=== PATIENT | female | born 1965 | race Caucasian/White ===

== ENCOUNTER 2016-10-19 11:22 | Day surgery (SDC) | payer OTHER ==
[~2016-10-19] VITALS: Ht 152.4 cm; Wt 84.8 kg
[2016-10-19] VITALS (10 sets, daily range): BP systolic 125–147; BP diastolic 72–95
[2016-10-19] MEDS ORDERED: LIDOCAINE 1% INJ 20 ML (XYLOCAINE) VIAL ONE (11:37)
[2016-10-19] MEDS ORDERED: HEParin (CATH LAB) 2,000 ML IV ONE (11:37)
[2016-10-19] MEDS ORDERED: NS IV 1000 ML 1,000 ML ONE (11:37)
[2016-10-19] MEDS ORDERED: NS IV 1000 ML 1,000 ML IV SCH ×2 (12:00→13:12)
[2016-10-19 12:02] LABS: MEAN PLATELET VOLUME 10.5 FL (7.4-10.4); RED BLOOD COUNT 5.11 10^6/uL (4.35-5.85); RED CELL DISTRIBUTION WIDTH 13.2 % (10.0-14.5); WHITE BLOOD COUNT 8.9 10^3/uL (4.3-11.0)
[2016-10-19 12:13] LABS: INR 0.9 (0.8-1.4); PROTHROMBIN TIME PATIENT 12.1 SEC (12.2-14.7)
[2016-10-19] MEDS ORDERED: SUMA50TA2 PO (12:16)
[2016-10-19] MEDS ORDERED: ASPI-999 PO (12:16)
[2016-10-19] MEDS ORDERED: THYR65TA5 PO (12:16)
[2016-10-19] MEDS ORDERED: CETI10TA17 PO (12:16)
[2016-10-19] MEDS ORDERED: VERA40TA2 PO (12:16)
[2016-10-19] MEDS ORDERED: OMEP-254 PO (12:16)
[2016-10-19] MEDS ORDERED: fentaNYL INJECTION 100 MCG/2 ML AMP ONE (12:19)
[2016-10-19] MEDS ORDERED: MIDAZOLAM 5 MG/5 ML (VERSED) VIAL ONE (12:19)
[2016-10-19] MEDS ORDERED: diphenhydrAMINE 50 MG/ML INJ (BENADRYL) ONE (12:19)
[2016-10-19 12:24] LABS: ALANINE AMINOTRANSFERASE 25 U/L (0-55); ALBUMIN 4.2 G/DL (3.2-4.5); ANION GAP 12 MMOL/L (5-14); ASPARTATE AMINO TRANSFERASE 22 U/L (5-34); BILIRUBIN,TOTAL 0.5 MG/DL (0.1-1.0); BLOOD UREA NITROGEN 19 MG/DL (7-18); BUN/CREATININE RATIO 24; CALCIUM 9.8 MG/DL (8.5-10.1); CARBON DIOXIDE 25 MMOL/L (21-32); CHLORIDE 103 MMOL/L (98-107); CHOLESTEROL 203 MG/DL (< 200); CREATININE SERUM 0.78 MG/DL (0.60-1.30); DIRECT LDL 107 MG/DL (1-129); GFR ESTIMATED > 60; GLUCOSE 93 MG/DL (70-105); SODIUM 140 MMOL/L (135-145); TOTAL PROTEIN 7.8 G/DL (6.4-8.2); TRIGLYCERIDES 79 MG/DL (<150); VLDL CHOLESTEROL 16 MG/DL (5-40)
--- NOTE | 2016-10-19 12:40 | Cardiac Procedure Note-CS/ASA ---
Pre-Procedure Note Pre-Op Procedure Note H&P Reviewed The H&P was reviewed, patient examined and no changes noted. Date H&P Reviewed: Oct 19, 2016 Time H&P Reviewed: 12:40 Conscious Sedation Pre-Proced Time Reviewed: 12:40 ASA Class: 2 Airway Mallampati Classification: ([place] mountain appropriate class) I. II. III, IV Lungs Heart ASA score ASA 1: a normal healthy patient ASA 2: a patient with a mild systemic disease (mid diabetes, controlled hypertension, obesity ASA 3: a patient with a severe systemic disease that limits activity (angina , COPD, prior Myocardial infarction) ASA 4: a patient with an incapacitating disease that is a constant threat to life (CHF, renal failure) ASA 5: a moribund patient not expected to survive 24 hrs. (ruptured aneurysm) ASA 6: a declared brain patient whose organs are being harvested. For emergent operations, add the letter E after the classification Grade 2 Sedation Plan: Analgesia, Amnesia, Plan communicated to team members, Discussed options with patient/fam, Discussed risks with patient/fam Note The patient is an appropriate candidate to undergo the planned procedure, sedation, and anesthesia. The patient immediately re-assessed prior to indication. MARY ANN DUMONT MD FACP FACC CCDS Oct 19, 2016 12:40
[2016-10-19] MEDS ORDERED: FLU TRIvalent (5 YOA+) 2016-17 (AFLURIA) 0.5 ML IM ONE (13:00)
[2016-10-19] MEDS ORDERED: METO-351 PO (13:15)
[2016-10-19] MEDS ORDERED: PATIENT MAY USE OWN MEDS, ALL PO SCH (13:15)
[2016-10-19] MEDS ORDERED: PRAV20TA3 PO (13:15)
--- NOTE | 2016-10-19 13:16 | Discharge Inst-Cardiology ---
Discharge Inst-Cardiac Discharge Medications New Medications: Metoprolol Succinate (Toprol Xl) 25 Mg Tab.er.24h 25 MG PO DAILY #30 Ref 5 TAB Pravastatin Sodium (Pravastatin Sodium) 20 Mg Tablet 20 MG PO HS #30 Ref 5 TAB Continued Medications: Aspirin (Aspirin) 81 Mg Tab.chew 81 MG PO DAILY TAB Cetirizine HCl (Cetirizine HCl) 10 Mg Tablet 10 MG PO DAILY TAB Omeprazole Magnesium (Omeprazole Magnesium) 20 Mg Capsule.dr 20 MG PO DAILY CAP Sumatriptan Succinate (Sumatriptan Succinate) 50 Mg Tablet 50 MG PO UD TAKE 1 TAB AT ONSET OF HEADACHE; MAY REPEAT 1 TAB IN 2 HOURS IF NEEDED. TAB Thyroid,Pork (Nature-Throid) 65 Mg Tablet 195 MG PO DAILY TAKES 3 (65 MG) TABLETS / LAST FILLED 09/10/16 #90 TAB Discontinued Medications: Verapamil HCl (Verapamil HCl) 40 Mg Tablet 40 MG PO DAILY TAB MARY ANN DUMONT MD FACP FAC CCDS Oct 19, 2016 13:16
--- NOTE | 2016-10-19 13:16 | Discharge Inst-Post CATH ---
Discharge Inst-CATH Post Cardiac Cath D/C Inst Follow Up/Plan F/u with Dr Brady in 2 weeks CARDIAC CATH DISCHARGE INSTRUCTIONS *Hold Metformin for 48 hours post heart cath. ACTIVITY * Go Home directly and rest. * Limit activity of the leg (or wrist if it was used) for 7 days including aerobics, swimming, jogging, bicycling, etc. * Restrict stair-climbing for 7 days if possible, if not, climb up with your non -cath leg, then bring together on the same step. * Avoid lifting, pushing, pulling or excessive movement of the affected extremity for 7 days. * Customary sexual activity may be resumed after 2 days-use caution not to use a position that strains or causes pain to the affected extremity. * No driving for 24 hours. * NO SMOKING. * Avoid straining for bowel movements for 7 days. * Gentle walking on level ground is allowed. * Returning to work will depend on the type of procedure and the results. Your doctor will discuss this with you. CALL YOUR DOCTOR FOR ANY OF THE FOLLOWING: *If bleeding from the puncture site occurs- Apply gentle pressure to site with clean cloth and call your doctor or EMS. * If a knot or lump forms under the skin, increases in size, or causes pain. * If bruising appears to be worsening or moving further down your leg instead of disappearing. * Temperature above 101 F. CARE OF YOUR GROIN INCISION; * Bruising or purple discoloration of the skin near the puncture site is common. * You may shower only, no bathtub bathing for 5 days. Be careful to avoid slipping as your leg may feel stiff. * If a closure device was used on your femoral artery, please see the attached guide regarding care of the device and your leg. * REMOVE the dressing from your groin the next day after your procedure in the shower. CARE OF YOUR WRIST INCISION; * Bruising or purple discoloration of the skin near the puncture site is common. * You may shower. * DO NOT submerge wrist. * Remove dressing in 24 hours. MARY ANN BRADY MD [facility] CCDS Oct 19, 2016 13:16
--- OUTSIDE RECORDS SUMMARY | 2016-10-19 13:32 | XMS REPORT | Continuity of Care Document ---
Author Author [facility] Organization [facility] Address Unknown Phone Unavailable Allergies Medications Problems Date Dx Coded Attending Type Code Diagnosis Diagnosed By 09/10/2015 ROSA PEDRAZA DO Ot R00.2 10/16/2015 ROSA PEDRAZA DO Ot R00.2 12/08/2015 ROSA PEDRAZA DO Ot R00.2 PALPITATIONS 03/13/2016 ROSA PEDRAZA DO Ot R00.2 PALPITATIONS Procedures Results Encounters ACCT No. Visit Date/Time Discharge Status Pt. Type Provider Facility Loc./Unit Complaint [id number] 09/09/2015 12:58:00 2015 00:01:00 DIS Outpatient ROSA PEDRAZA DO [facility] CARD [id number] 03/27/2014 20:01:00 2013 06:45:00 DIS Outpatient [id number] 03/08/2014 06:26:00 2013 23:59:59 CLS Outpatient [id number] 02/20/2014 06:27:00 2013 23:59:59 CLS Outpatient [id number] 01/24/2014 10:47:00 2013 23:59:59 CLS Outpatient [id number] 01/09/2014 12:01:00 2013 23:59:59 CLS Outpatient [id number] 12/09/2015 13:00:00 PEN Preadmit ROSA PEDRAZA DO [facility] CARD
--- OUTSIDE RECORDS SUMMARY | 2016-10-19 13:33 | XMS REPORT | Continuity of Care Document ---
Author Author [facility] Organization [facility] Address Unknown Phone Unavailable Allergies Medications Problems Date Dx Coded Attending Type Code Diagnosis Diagnosed By 09/10/2015 ROSA PEDRAZA DO Ot R00.2 10/16/2015 ROSA PEDRAZA DO Ot R00.2 12/08/2015 ROSA PEDRAZA DO Ot R00.2 PALPITATIONS 03/13/2016 ROSA PEDRAZA DO Ot R00.2 PALPITATIONS Procedures Results Encounters ACCT No. Visit Date/Time Discharge Status Pt. Type Provider Facility Loc./Unit Complaint [id number] 09/09/2015 12:58:00 2015 00:01:00 DIS Outpatient ROSA PEDRAZA DO [facility] CARD [id number] 03/27/2014 20:01:00 2013 06:45:00 DIS Outpatient [id number] 03/08/2014 06:26:00 2013 23:59:59 CLS Outpatient [id number] 02/20/2014 06:27:00 2013 23:59:59 CLS Outpatient [id number] 01/24/2014 10:47:00 2013 23:59:59 CLS Outpatient [id number] 01/09/2014 12:01:00 2013 23:59:59 CLS Outpatient [id number] 12/09/2015 13:00:00 PEN Preadmit ROSA PEDRAZA DO [facility] CARD
--- NOTE | 2016-10-20 09:01 | CARDIAC CATHETERIZATION ---
PROCEDURE PHYSICIAN: MARY ANN DUMONT DATE OF PROCEDURE: CARDIAC CATHETERIZATION REPORT: Chloe Browning is a 50-year-old lady who has multiple coronary disease risk factors and has recently had a coronary calcium score done in [place] and the interpreting physician diagnosed coronary disease and recommended cardiac catheterization. Cardiac catheterization was carried out today after having obtained an informed consent. PROCEDURE: She was brought to the cardiac catheterization laboratory in a fasting state. The right groin was prepared and draped in the usual sterile fashion. 1% lidocaine was used for local anesthesia. Modified Seldinger technique was used to advance a 5-Lithuanian sheath in the right femoral artery. 5-Lithuanian JL4 catheter was used for left coronary angiography. 5-Lithuanian JR4 was used for right coronary angiography. 5-Lithuanian pigtail catheter was used for left heart catheterization, left ventricular angiography. At the end of the procedure, angiography of the right femoral artery was carried out through the sheath and Mynx was used to achieve hemostasis. She tolerated the procedure well. HEMODYNAMICS: Left ventricular end-diastolic pressure following coronary angiography was 12 mmHg. There was no significant pressure gradient on pullback across the aortic valve. Ascending aortic pressure 147/91 with a mean of 98 mmHg. CORONARY ANGIOGRAPHY: The left main coronary artery is free of significant disease. There is proximal coronary calcification. There appears to be mild coronary plaques involving the left anterior descending artery. The left circumflex arteries do not exhibit significant disease. Right coronary artery is dominant and does not exhibit significant disease. LEFT VENTRICULAR ANGIOGRAPHY: Left ventricular angiography was carried out in the right anterior oblique projection. Global left ventricular systolic function is normal. No regional wall motion abnormalities are seen. Left ventricular ejection fraction is approximately 65 to 70%. No significant mitral regurgitation is seen. CONCLUSIONS: 1. Angiographically mild coronary disease. 2. Normal global left ventricular systolic function with an ejection fraction of 65 to 70%. 3. Normal left ventricular end-diastolic pressure. 4. No significant mitral regurgitation. DISCUSSION AND RECOMMENDATIONS: Based on the results of this study, it appears appropriate to continue a conservative regimen. Risk factor modification has been reviewed. Aspirin has been added to the regimen. She has been advised to quit smoking immediately and completely. Outpatient follow-up is advised. Job ID: [id number] Dictated Date: 10/19/2016 13:06:24 Fingerprinter Date: 10/20/2016 08:52:17 / earlene
== END 2016-10-19 16:30 | disposition home or self-care (01) ==
LOC: CATH 11:22 → SURG 13:32 → CATH 16:30
PROVIDERS: ATTEND Internal Medicine Cardiovascular Disease
DX: I25.10 Atherosclerotic heart disease of native coronary artery without angina pectoris (principal); I25.84 Coronary atherosclerosis due to calcified coronary lesion; I10 Essential (primary) hypertension; E78.5 Hyperlipidemia, unspecified; E89.0 Postprocedural hypothyroidism; Z72.0 Tobacco use; Z82.49 Family history of ischemic heart disease and other diseases of the circulatory system; Z79.899 Other long term (current) drug therapy
CPT/HCPCS: 36415; 80053; 80061; 85027; 85610; 85730; 87081; 93458

== ENCOUNTER → 2016-11-24 | Outpatient (CLI) | payer OTHER ==
[~2016-11-24] MED LIST: ASPI-999 PO; CETI10TA17 PO; METO-351 PO; OMEP-254 PO; PRAV20TA3 PO; SUMA50TA2 PO; THYR65TA5 PO; VERA40TA2 PO
[2016-11-24 10:04] LABS: ALANINE AMINOTRANSFERASE 30 U/L (0-55); ALBUMIN 4.2 G/DL (3.2-4.5); ANION GAP 8 MMOL/L (5-14); ASPARTATE AMINO TRANSFERASE 24 U/L (5-34); BILIRUBIN,TOTAL 0.3 MG/DL (0.1-1.0); BLOOD UREA NITROGEN 19 MG/DL (7-18); BUN/CREATININE RATIO 24; CALCIUM 9.8 MG/DL (8.5-10.1); CARBON DIOXIDE 29 MMOL/L (21-32); CHLORIDE 106 MMOL/L (98-107); CHOLESTEROL 173 MG/DL (< 200); CREATININE SERUM 0.79 MG/DL (0.60-1.30); DIRECT LDL 81 MG/DL (1-129); GFR ESTIMATED > 60; GLUCOSE 105 MG/DL (70-105); POTASSIUM 4.6 MMOL/L (3.6-5.0); SODIUM 143 MMOL/L (135-145); TOTAL PROTEIN 7.8 G/DL (6.4-8.2); TRIGLYCERIDES 74 MG/DL (<150); VLDL CHOLESTEROL 15 MG/DL (5-40)
== END ==
LOC: LAB 09:32
PROVIDERS: ATTEND Internal Medicine Cardiovascular Disease
DX: I25.10 Atherosclerotic heart disease of native coronary artery without angina pectoris (principal); E78.5 Hyperlipidemia, unspecified
CPT/HCPCS: 36415; 80053; 80061

== ENCOUNTER → 2017-05-19 | Outpatient (CLI) | payer OTHER ==
[2017-05-19 10:26] LABS: ALANINE AMINOTRANSFERASE 46 U/L (0-55); ALBUMIN 4.2 GM/DL (3.2-4.5); ANION GAP 10 MMOL/L (5-14); ASPARTATE AMINO TRANSFERASE 44 U/L (5-34); BILIRUBIN,TOTAL 0.5 MG/DL (0.1-1.0); BLOOD UREA NITROGEN 16 MG/DL (7-18); BUN/CREATININE RATIO 21; CALCIUM 9.8 MG/DL (8.5-10.1); CARBON DIOXIDE 25 MMOL/L (21-32); CHLORIDE 104 MMOL/L (98-107); CHOLESTEROL 214 MG/DL (< 200); CREATININE SERUM 0.77 MG/DL (0.60-1.30); DIRECT LDL 134 MG/DL (1-129); GFR ESTIMATED > 60; GLUCOSE 94 MG/DL (70-105); POTASSIUM 4.4 MMOL/L (3.6-5.0); SODIUM 139 MMOL/L (135-145); TOTAL PROTEIN 8.2 GM/DL (6.4-8.2); TRIGLYCERIDES 127 MG/DL (<150); VLDL CHOLESTEROL 25 MG/DL (5-40)
== END ==
LOC: LAB 09:49
PROVIDERS: ATTEND Nurse Practitioner Family
DX: I25.10 Atherosclerotic heart disease of native coronary artery without angina pectoris; I10 Essential (primary) hypertension; E78.4 Other hyperlipidemia
CPT/HCPCS: 36415; 80053; 80061

== ENCOUNTER → 2020-08-28 | Outpatient (CLI) | payer OTHER ==
--- NOTE | 2020-08-28 17:55 | Diagnostic Imaging Report ---
Digital mammogram, bilateral screening. This study was compared to the prior exams of 06/14/2017 and 05/28/2015. At this time, there are no current complaints. The current study was also evaluated with a Computer Aided Detection (CAD) system. FINDINGS: There are scattered fibroglandular densities in both breasts which could obscure a lesion. Overall, there does not appear to have been any significant change when compared to the prior exam. No primary or secondary sign of malignancy is noted. IMPRESSION: 1. There is no radiographic evidence for malignancy. 2. The patient should have her annual bilateral screening mammogram on schedule in July of 2021. ACR BI-RADS Category 1: Negative. Result letter will be mailed to the patient. Note: At least 10% of breast cancer is not imaged by mammography. Dictated by: Dictated on workstation # [id number]
== END ==
LOC: RAD 07:45
PROVIDERS: ATTEND Internal Medicine
DX: Z12.31 Encounter for screening mammogram for malignant neoplasm of breast (principal)
CPT/HCPCS: 77063; 77067

== ENCOUNTER → 2022-08-31 | Outpatient (CLI) | payer BC, OTHER ==
--- NOTE | 2022-09-01 09:13 | Diagnostic Imaging Report ---
Indication: Routine screening. Comparison is made with prior mammogram 08/28/2020 and 06/14/2017. 2-D and 3-D bilateral screening mammography was performed with CAD. CAD is utilized. The current study was also evaluated with a Computer Aided Detection (CAD) system. Scattered fibroglandular densities are identified bilaterally. The parenchymal pattern is stable. No mass or malignant-appearing microcalcifications are seen. Axillae are unremarkable. IMPRESSION: BI-RADS Category 1 No mammographic features suspicious for malignancy are identified. ACR BI-RADS Category 1: Negative. Result letter will be mailed to the patient. Note: At least 10% of breast cancer is not imaged by mammography. Dictated by: Dictated on workstation # [id number]
== END ==
LOC: RAD 08:33
PROVIDERS: ATTEND Internal Medicine
DX: Z12.31 Encounter for screening mammogram for malignant neoplasm of breast (principal)
CPT/HCPCS: 77063; 77067